=== PATIENT | male | born 1950 | race Caucasian/White ===

== ENCOUNTER 2023-03-25 08:13 | Outpatient (CLI) | payer MEDICARE, SELFPAY ==
--- NOTE | 2023-04-05 18:21 | WPDSLEEPSTUD ---
Sleep Study Date of Study: 03/25/23 Ordering Provider: Moe Delacruz MD Interpreting Physician: Senia Calderon MD Sleep Study Type: Split Polysomnogram Height: 1.93 m Weight: 136.078 kg Body Mass Index: 36.5 Neck Circumference (inches): 19.5 Sherman: 8 Reason for Sleep Study history of obstructive sleep apnea, use CPAP for 23 years, CPAP 10 cm Sleep History Jeremy Matson is a 72-year-old man with obstructive sleep. He never awakens from sleep feeling short of breath. He rarely wakes at night with heartburn, belching or coughing.??He constantly snores, constantly snores loudly enough that others complain. He occasionally has trouble sleeping when he has a cold. He never wakes up gasping for breath during the night. He frequently has breathing problems at night. He occasionally sweats excessively at night. He never notices his heart pounding or beating irregularly during the night. He occasional falls asleep during the day. He occasionally falls asleep involuntarily, never falls asleep while driving. He never experiences loss of muscle tone with strong emotion. He rarely has daytime difficulty at work due to excessive sleepiness. He never feels paralyzed on waking or falling asleep. He rarely experiences vivid dreams upon waking or falling asleep. He never feels afraid of going to sleep. He rarely has nightmares. He rarely recalls his dreams. He rarely has thoughts racing through his mind. He never feels sad or depressed. He rarely feels anxiety. He rarely notices parts of his body jerk. He occasionally kicks during the night. He rarely feels crawling or aching feelings in his legs. He rarely feels leg pain at night. He never has morning jaw pain, rarely grinds his teeth at night. He rarely feels bothered by pain during the day, rarely awakened by pain during the night. He occasionally wakes up feeling stiff in the morning, and he rarely wakes feeling sore or achy. He occasionally awakens with pain in his neck, spine, or joints. Normal bedtime is 9:30 p.m., falling asleep within 10-20 minutes typically waking 2-3 times during the night to empty his bladder, returns to sleep within 5 minutes. He typically gets 7 and a half hours of sleep per night. His wake up time is 8:00 a.m.. He keeps a similar schedule on weekends.. He Generally does not take naps but a short nap lasting 10-15 minutes might be refreshing. He reports no change in weight during the last year. Habits:??Tobacco: cigarettes, half to 3/4 pack per day Caffeine: 2 sodas per day. Alcohol: none Recreational substances: none [facility] Past Medical History Medical History (Updated 04/05/23 @ 19:00 by Senia Calderon MD) BMI 34.0-34.9,adult BMI 38.0-38.9,adult BMI over 35 Degenerative lumbar disc Foot drop, right History of atrial fibrillation Mixed hyperlipidemia Nasal sinus inflammation due to allergy KANNAN on CPAP Type 2 diabetes mellitus without complication Surgical History Surgical History (Updated 04/05/23 @ 18:31 by Senia Calderon MD) History of partial nephrectomy Status post cholecystectomy Total knee replacement status Social History Social History Years smoked: 52 Smoking status: Current every day smoker Tobacco type: cigarettes Second hand tobacco smoke exposure: Yes Alcohol intake: current Substance use: never Medications Home Medications Medication Instructions Recorded Confirmed Type aspirin 81 mg tablet,delayed 81 mg PO DAILY 02/08/22 02/21/23 History release cholecalciferol (vitamin D3) 125 125 mcg PO DAILY 02/08/22 02/21/23 History mcg (5,000 unit) capsule multivitamin 1 tablet PO DAILY 02/08/22 02/21/23 History potassium citrate 99 mg capsule mg PO 09/06/22 02/21/23 History carvedilol 12.5 mg tablet 12.5 mg PO BID #180 tabs 10/18/22 02/21/23 Rx rosuvastatin 40 mg tablet 40 mg PO DAILY #90 tabs 10/18/22 02/21/23 Rx furosemide 80 mg tablet 80
[2023-04-05 18:33] VITALS: BMI 36.5
== END 2023-03-26 07:43 | disposition home or self-care (01) ==
PROVIDERS: PCP Family Medicine; Visit Provider Family Medicine
DX: G47.33 Obstructive sleep apnea (adult) (pediatric) (principal); G47.61 Periodic limb movement disorder
CPT/HCPCS: 95811

== ENCOUNTER 2024-01-17 13:04 | Outpatient (CLI) | payer MEDICARE, SELFPAY ==
--- NOTE | ~2024-01-17 | US_ITS ---
EXAMINATION: US carotid duplex BI DATE: 01/17/2024 13:51 INDICATION: Cerebrovascular accident. TECHNIQUE: Grayscale, color Doppler, and pulsed Doppler images of the cervical carotid arteries were obtained. The degree of vessel stenosis is placed in one of the following categories: normal, <50%, 5 0-69%, >=70% but less than near-occlusion, near-occlusion, or total occlusion. Note that percent sten osis relative to normal distal artery lumen diameter is indirectly measured from velocity measurement s as described by Gareth, et al. Radiology 2003; 229:340-346. COMPARISON: None. FINDINGS: RIGHT: The right common carotid artery (CCA) peak systolic velocity (PSV) is 53 cm/s. The right internal car otid artery (ICA) PSV is 83 cm/s. The right ICA end-diastolic velocity (EDV) is 25 cm/s. The right IC A/CCA PSV ratio is 1.6. Grayscale and color Doppler images yield an estimate of <50% diameter reducti on from plaque in the ICA. There is antegrade flow in the right vertebral artery. LEFT: The left CCA PSV is 47 cm/s. The left ICA PSV is 84 cm/s. The left ICA EDV is 33 cm/s. The left ICA/C CA PSV ratio is 1.8. Grayscale and color Doppler images yield an estimate of <50% diameter reduction from plaque in the ICA. There is antegrade flow in the left vertebral artery. IMPRESSION: 1. <50% stenosis in the right internal carotid artery. 2. <50% stenosis in the left internal carotid artery. Reviewed, dictated and finalized at location A.
== END 2024-01-17 13:05 | disposition home or self-care (01) ==
PROVIDERS: PCP Family Medicine
DX: R27.0 Ataxia, unspecified (principal); I63.9 Cerebral infarction, unspecified; I65.23 Occlusion and stenosis of bilateral carotid arteries
CPT/HCPCS: 93880

== ENCOUNTER 2024-07-14 15:12 | Emergency (ER) | payer MEDICARE, SELFPAY ==
--- OUTSIDE RECORDS SUMMARY | 2024-07-14 15:14 | XMS_ITS | Continuity of Care Document ---
Author Organization [facility] [place] Address [address] [place] [address] [address] [place] [address] Phone Care Team Providers Care Horse Show Judge Name Role Phone Oliver OD, Austin Unavailable Unavailable Procedures Procedure Date Eye Exam, New Patient Refraction Advance Directives Directive Yes / No Effective Date File Name No Information Encounters Encounter Description Practice Location Reason(s) For Visit Diagnoses Date Provider Providers Copied on Encounter [facility], [address] [place] [address] [address] [place], [place], [id number], [place] tel:[phone] [facility] [place] No Information [phone] Oliver OD [place]. [address] [facility] [address] [place] , [address], [place], [address], [place]. tel:[phone] Family History Family Member Type Diagnosis Age At Onset No Information Payers Payer name Insurance type Covered republican ID Authoriza tion(s) No Information Social History Type Description Quantity Date Captured Comments Sex Male Smoking Status No Information Chief Complaint And Reason For Visit No Information Reason For Referral Reason For Referral No Information History Of Present Illness Encounter Date Complaint History Of Prese nt Illness No Information Functional Status Date Functional Assessmen t No Information Instructions Date Instruction Additional Infor mation No Information Assessments Type Assessment Date No Information Patient Care Teams Name Effective Dates (start - stop) Status Members No Information
--- OUTSIDE RECORDS SUMMARY | 2024-07-14 15:14 | XMS_ITS | CONTINUITY OF CARE DOCUMENT ---
Author Name brittney, chelsiser Address Unknown Organization [facility] Address [address] [place] [address] [place] [address] Phone [phone] Care Team Providers Care Head Of Measurement & Insights Name Role Phone Jos ROBERTS, Jarred Unavailable [phone] LISA MACHADO MD Unavailable Unavailable LISA MACHADO MD Unavailable Unavailable PROBLEMS Condition Status Date Provider Notes TOBACCO ABUSE active Shanique Stahlschmidt SLEEP APNEA active Shanique Stahlschmidt SNORING active Shanique Stahlschmidt DIABETES MELLITUS active Shanique Stahlschmid t HYPERCHOLESTEROLEMIA active Shanique Stahlsch midt HTN ESSENTIAL active Shanique Stahlschmidt CARDIOMYOPATHY active Shanique Stahlschmidt ALLERGIES No Known Drug Allergies HISTORY OF MEDICATION USE Medication Status Instructions Dates Provider Indications Com ments ACTOS 30 MG ORAL TABLET active ONE TAB. DAILY Shanique Stahlschmidt NIACIN 500 MG ORAL TABLET active two tab twice daily Shanique Stahlschmidt FLAXSEED OIL CAPSULE active twice daily Shanique Stahlschmidt GLUCOPHAGE 500 MG ORAL TABLET active 4 tabs daily Shanique Stahlschmidt ENALAPRIL MALEATE 10 MG ORAL TABLET active ONE TAB. TWICE DAILY Shanique Stahlschmidt COREG 12.5 MG ORAL TABLET active ONE TAB. TWICE DAILY Shanique Stahlschmidt FOLGARD TABS active Shanique Stahlschmidt ASPIRIN 81 MG ORAL TABLET active ONE TAB. DAILY Shanique Stahlschmidt INSURANCE PROVIDERS Payer name Policy type / Coverage type [place] red green party ID [facility] [id number]
--- OUTSIDE RECORDS SUMMARY | 2024-07-14 15:14 | XMS_ITS | Clinical Summary ---
Author Organization [facility] Address [address] [place] [address] Care Team Providers Care Teenage Program Director Name Role Phone Unavailable Primary Care Provider Unavailabl e Social History Tobacco Use Types Packs/Day Years Used Date Smoking Tobacco: Never Assessed Sex and Gender Information Value Date Recorded Sex Assigned at Not on file Legal Sex Male 9:23 PM [employer] Gender Identity Not on file Sexual Orientation Not on file Plan of Treatment Health Maintenance Due Date Last Done Comments Colorectal Cancer Screening Colonoscopy (10 Years) 1950 Hepatitis C 1970 DTaP, Tdap and Td Vaccines ( 1 - Tdap) 07/03/1971 Zoster Vaccines (1 of 2) 2002 Pneumococcal Vaccine: 65+ Ye ars (1 of 1 - PCV) 2017 COVID-19 Vaccine ( - 2023-2 5 season) 2023 Influenza Adult (#1) 2024 RSV Immunization or 60+ Years (1 - 1-dose 75+ series) 07/03/2027 Meningococcal B Vaccine Aged Out No l onger eligible based on patient's age to complete this topic Meningococcal Vaccine Aged Out No deven natasha eligible based on patient's age to complete this topic RSV Immunizations Under 20 Months Aged Out No longer eligible based on patient's age to complete this topic
--- OUTSIDE RECORDS SUMMARY | 2024-07-14 15:14 | XMS_ITS | Clinical Summary ---
Author Organization [facility] [employer] Address [address] [place] [address] Care Team Providers Care Sports Fitness And Wellness Director Name Role Phone Moe Delacruz MD Primary Care Provider [phone] Johnathon Perez DO Unavailable [phone] Source Comments [facility],non-owned Affiliates and Associated Physician Practices is amultiple site organization consisting of ambulatory clinics and hospital sitesin [place], [place], [place] and [place]. This disclosure is being madepursuant to the Care Everywhere program and may not contain all information available regarding this patient. Last updated 18.[facility] [employer] Allergies Active Allergy Reactions Criticality Noted Date Comments Contrast-Iodinated Agents Fo r Ct/Other Other 06/22/2019 Kidney problems Metformin Diarrhea 09/02/2022 Nsaids Other 06/22/2019 Kidney problems Medications * Be aware that medications may not be up to date on this document. Alwaysverify current medications with the patient. Medication Sig Dispensed Refills Start Date End Date Status furosemide (Lasix) 80 MG tablet Take 1 (one) tablet by mouth once daily Active carvedilol (Coreg) 12.5 MG tablet Take 1 (one) tablet by mouth 2 times daily with morning and evening meal Active pioglitazone (Actos) 45 MG tablet Take 1 (one) tablet by mouth once daily Active Potassium 95 MG TABS Take 1 tablet by mouth 2 times daily Active cetirizine (ZyrTEC) 10 MG tablet Take 1 (one) tablet by mouth once daily Active VITAMIN D PO Take 5,000 Units by mouth Active aspirin EC (Ecotrin) 81 MG tablet Take 1 (one) tablet by mouth once daily Active Multiple Vitamin (MULTIVITAMIN ADULT PO) Take by mouth once daily Active Mounjaro 5 MG/0.5ML injection Inject 5 (five) mg subcutaneously every 7 days 4 Active gentamicin (Garamycin) 0.1 % topical ointmentIndications :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) APPLY TO THE AFFECTED AREA 3 TIMES A DAY 30 g 1 4 04/20/20 25 Active Additional Information Patient taking differently: PRN, Reported on 07/10/2024 rosuvastatin (Crestor) 40 MG tablet Take 1 (one) tablet by mouth at bedtime 4 Active collagenase (Santyl) 250 UNIT/GM ointmentIndications :Ulcer of right foot with fat layer exposed (HCC),Diabetic polyneuropathy associated with type 2 diabetes mellitus (HCC) Apply to affected area once daily 90 g 3 4 01/13/20 24 Discontinu ed(Tx Complete) gabapentin (Neurontin) 300 MG capsule Take 1 (one) capsule by mouth 3 times daily 90 capsule 1 4 07/11/19 25 Discontinu ed(List Clean-Up) amoxicillin-clavula tara (Augmentin) 500-125 MG tablet TAKE 1 TABLET BY MOUTH THREE TIMES DAILY UNTIL GONE 5 07/11/19 25 Discontinu ed(List Clean-Up) Active Problems Problem Noted Date Diagnosed Date Cervical myelopathy 01/31/2024 Other intervertebral disc degeneration, lumbar r egion 09/22/2022 Foot drop, right 09/22/2022 Encounters Date Type Department Care Team Description 07/13/2024 Telephone [facility] Orthopedics [address] [place] [address] Brianna Walker, CIGARETTE SELLER-DISTRICT ASSOCIATE JUDGE Imaging (see note) 07/12/2024 3:30 PM CDT Office Visit [facility] - Podiatry [address] [facility] [place] [address] Tristian Yao, DPKaylee 07/10/2024 3:00 PM CDT Office Visit [facility] Heart & Vascular Care [address] [facility], [address] [place] [address] Johnathon Perez T, DO Paroxysmal A-fib (Primary Dx); Primary hypertension; Mixed hyperlipidemia; Localized swelling of both lower legs 06/21/2024 2:00 PM ASSEMBLER INSTALLER STRUCTURES Office Visit [facility] - Podiatry 2 [facility], [facility] [address] [place] [phone] Tristian Yao, DPM Ulcer of right foot with fat layer exposed (Primary Dx); Diabetic polyneuropathy associated with type 2 diabetes mellitus; Drop foot gait; Onychomycosis 05/24/2024 3:00 PM ASSEMBLER INSTALLER STRUCTURES Office Visit [facility] Podiatry [address] [phone] Tristian Yao, DPKaylee Ulcer of right foot with fat layer exposed (Primary Dx); Diabetic polyneuropathy associated with type 2 diabetes mellitus; Drop foot gait; Onychomycosis; History of amputation 05/02/2024 2:00 PM ASSEMBLER INSTALLER STRUCTURES Office Visit [facility] Podiatry [address] [phone] Tristian Yao, DPKaylee Ulcer of right foot with fat layer exposed (Primary Dx); Diabetic polyneuropathy associated with type 2 diabetes mellitus; Drop foot gait; Onychomycosis 04/23/2024 10:00 AM ASSEMBLER INSTALLER STRUCTURES Office Visit [facility] Orthopedics [address] [place] [phone] Vasquez Cope MD Davis, Alicia J, APRN-DISTRICT ASSOCIATE JUDGE Cervical myelopathy (Primary Dx); S/P cervical spinal fusion; Entrapment of both ulnar nerves 04/23/2024 8:45 AM ASSEMBLER INSTALLER STRUCTURES - 04/23/2024 11:59 PM ASSEMBLER INSTALLER STRUCTURES Hospital Encounter [facility] [address] [place], [place] [address] Brianna Walker APRN-DISTRICT ASSOCIATE JUDGE Discharge Disposition: Home or Self Care from Last 3 Months Immunizations Name Administration Dates Next Due Covid Pfizer primary monoval ent 12+ yr 0.3mL Purple cap 05/02/2020,04/10/2020 PNEUMOCOCCAL PCV20 CONJ VAC IM 02/02/2024 TDAP (7yrs+) 09/02/2022 Family History Medical History Relation Name Comments Diabetes - Type 2 Father CVA Mother Relation Name Status Comments Father Mother Social History Tobacco Use Types Packs/Day Years Used Date Smoking Tobacco: Former Cigarettes Q uit: 01/24/2024 Smokeless Tobacco: Never Tobacco Cessation:Counseling Given: Not Answered Comments:Stopped 1 week ago/ pre-surgery Alcohol Use Standard Drinks/Week Comments Not Currently 0 (1 standard drink = 0.6 oz pur e alcohol) rarely AUDIT-C Answer Date Recorded Q1: How often do you have a drink containing alcohol? Never 01/31/2024 Q2: How many drinks containi ng alcohol do you have on a typical day when you are drinking? Patient does not drink Q3: How often do you have si x or more drinks on one occasion? Never 01/31/2024 Overall Financial Resource Strain (CARDIA) Answe r Date Recorded How hard is it for you to pa y for the very basics like food, housing, medical care, and heating? Patient declined 01/31/2024 PHQ-2 Answer Date Recorded Patient Health Questionnaire-2 Score 0 07/12/2024 [facility] [place] [facility] - Occupational Stress Questionnaire Answer Date Recorded Do you feel stress - tense, restless, nervous, or anxious, or unable to sleep at night because your mind is troubled all the time - these days? Only a little 01/31/2024 Hunger Vital Sign Answer Date Recorded Within the past 12 months, y ou worried that your food would run out before you got the money to buy more. Patient declined Within the past 12 months, t he food you bought just didn't last and you didn't have money to get more. Patient declined 11/2023 PRAPARE - Transportation Answer Date Re corded In the past 12 months, has l ack of transportation kept you from medical appointments or from getting medications? No 11/2023 In the past 12 months, has l ack of transportation kept you from meetings, work, or from getting things needed for daily living? No 01/31/2024 Housing Stability Vital Sign Answer José Miguel e Recorded In the last 12 months, was t here a time when you were not able to pay the mortgage or rent on time? No 01/31/2024 In the last 12 months, how many places have you lived? 1 01/31/2024 In the last 12 months, was t here a time when you did not have a steady place to sleep or slept in a care home (including now)? No 01/31/2024 Sex and Gender Information Value Date Recorded Sex Assigned at Not on file Gender Identity Not on file Sexual Orientation Not on file Last Filed Vital Signs Vital Sign Reading Time Taken Comments Blood Pressure 123/65 07/12/2024 3:36 PM CDT Pulse 55 07/12/2024 3:36 PM CDT Temperature 36.4 C (97.5 F) 07/12/2024 3:36 PM CDT Respiratory Rate 18 07/12/2024 3:36 PM CDT Oxygen Saturation 96% 07/12/2024 3:36 PM CDT Inhaled Oxygen Concentration 21% 01/31/2024 7 :00 PM CDT Weight 117.5 kg (259 lb) 07/12/2024 3:36 PM CDT Height 193 cm (6' 4 ) 07/12/2024 3:36 PM CDT Body Mass Index 31.53 07/12/2024 3:36 PM CDT Plan of Treatment Upcoming Encounters Date Type Department Care Team (Late st Contact Info) Description 07/20/2024 8:30 AM CDT Office Visit [facility] Orthopedics [address] [place] [address] Brianna Walker, CIGARETTE SELLER-DISTRICT ASSOCIATE JUDGE [address] [place] [address] 08/08/2024 3:30 PM CDT Office Visit [facility] - Podiatry 2 [address] [facility], [facility] [address] [place] [address] Tristian Yao, DPKaylee 2 [facility] [address] [place] [address] 07/09/2025 3:00 PM CDT Office Visit [facility] Heart & Vascular Care 2 [facility], [address] [place] [address] Johnathon Perez, [address] [facility] [address] [place] [phone] Health Maintenance Due Date Last Done Comments COLOGUARD (AGES 45-75) - COLON CA SCREENING 1952 COLON MONITORING 1952 COLONOSCOPY - COLON CA SCREENING 1952 CT COLONOGRAPHY - COLON CA SCREENING 1952 Colorectal Cancer Screening 1952 FIT - COLON CA SCREENING 1952 FLEX SIG - COLON CA SCREENING 1952 HEPATITIS C SCREENING 06/28/1970 ZOSTER VACCINE (1 of 2) 2002 Respiratory Syncytial Virus (RSV) Vaccine Pt: or over 60 yrs (1 - Risk 60-74 years 1-dose series) 2012 AAA SCREENING 2017 COVID-19 VACCINE (4 - 2023- season) 2023 04/25/2021, 05/02/2020, 04/10/2020 INFLUENZA VACCINE (#1) 2023 05/25/2014, 2012 SCREENING FOR DIABETES 01/31/2027 , 02/01/2024, 01/13/2024, Additional history exists DTAP/TDAP/TD VACCINES (2 - Td or Tdap) 09/02/2032 09/02/2022 PNEUMOCOCCAL VACCINE 50+ Completed 02/02/2024 DEPRESSION SCREENING Completed 05/02/2024, 05/12/2023, 05/31/2022, Additional history exists HEPATITIS B VACCINE Aged Out No longe r eligible based on patient's age to complete this topic HIB VACCINE Aged Out No longer eligi ble based on patient's age to complete this topic HPV VACCINE Aged Out No longer eligi ble based on patient's age to complete this topic MENINGOCOCCAL (Group B) VACCINE SHARED DECISION-MAKING Aged Out No longer eligible based on patient's age to complete this topic MENINGOCOCCAL GROUPS A/C/Y/W VACCINE Aged Out No longer eligible based on patient's age to complete this topic Medical Devices Implanted Type Area Special Procedures Nurse Device Identifier Shelf Expiration Date Model / Serial / Lot Graft Bone I Fctr 2.5cc Algrf Ptty Syr - [id number] Implanted:Qty: 1 on 02/01/2024 by Vasquez Cope MD at [facility] N/A: Spine Cervical [employer] 04/24/2026 [id number] / [id number] / [id number] 7mm Interbody Plate Implanted:Qty: 3 on 02/01/2024 by Vasquez Cope MD at [facility] N/A: Spine Cervical 170-07 / / Description:7mm Interbody Pl ate 7mm X 15 X 17.5, 6 Degree Cage Implanted:Qty: 3 on 02/01/2024 by Vasquez Cope MD at [facility] N/A: Spine Cervical [id number] / / Description:cage 4.0 X 18mm Self Drilling Variable Screw Implanted:Qty: 6 on 02/01/2024 by Vasquez Cope MD at [facility] N/A: Spine Cervical [id number] / / Procedures Procedure Name Priority Date/Time Associated Diagnosis Comments EKG 12-LEAD Routine 07/10/2024 Paroxysmal A-fib XR CERVICAL SPINE 2 OR 3VW Routine 04/23/2024 8:58 AM ASSEMBLER INSTALLER STRUCTURES S/P cervical spinal fusion GLUCOSE - POINT OF CARE Routine 02/01/2024 9:17 AM CDT from Last 3 Months or Most Recently Relevant to Health Maintenance Results * EKG 12-LEAD (07/10/2024) Johnathon Perez DO ECG ORDERABLES * XR CERVICAL SPINE 2 OR 3 VW 24604 (04/23/2024 8:58 AM ASSEMBLER INSTALLER STRUCTURES) Anatomical Region Laterality Modality Spine Computed Radiogr aphy 04/23/2024 9:30 AM ASSEMBLER INSTALLER STRUCTURES Narrative 04/24/2024 5:44 AM ASSEMBLER INSTALLER STRUCTURES PROCEDURE: XR CERVICAL SPINE 2 OR 3VW 04/23/2024 9:30 AM HISTORY: Z98.1: Arthrodesis status. FINDINGS AND IMPRESSION: COMPARISON: 03/11/2024. No acute fracture, dislocation, destructive process Anterior interbody fusion C3 C4 C4 C5 C5 C6. Surgical hardware in satisfactory Anatomic alignment No evidence of hardware failure or loosening. Multilevel facet degeneration No spondylolisthesis Stable arthrodesis. > Interpreting Provider: Aman Booth MD on 04/24/2024 5:44 AM Procedure Note Aman Booth MD - 04/24/2024 PROCEDURE: XR CERVICAL SPINE 2 OR 3VW 04/23/2024 9:30 AM HISTORY: Z98.1: Arthrodesis status. FINDINGS AND IMPRESSION: COMPARISON: 03/11/2024. No acute fracture, dislocation, destructive process Anterior interbody fusion C3 C4 C4 C5 C5 C6. Surgical hardware in satisfactory Anatomic alignment No evidence of hardware failure or loosening. Multilevel facet degeneration No spondylolisthesis Stable arthrodesis. > Interpreting Provider: Aman Booth MD on 04/24/2024 5:44 AM Brianna Walker CIGARETTE SELLER-DISTRICT ASSOCIATE JUDGE DIAGNOSTIC IMAGI NG ORDERABLES * GLUCOSE - POINT OF CARE (02/01/2024 9:17 AM CDT) Glucose WB/POC 106 70 - 125 mg/dL 02/01/2024 9:18 AM CDT [facility] Specimen Type Cap Fingerstick 2023 9:18 AM CDT [facility] Blood BLOOD SPECIMEN / Unknown 02/01/2024 9:17 AM CDT 02/01/2024 9:18 AM CDT Vasquez Cope MD LAB - POINT O F CARE ORDERABLES Performing Organization Address City/State/[facility] Co de Phone Number [facility] [address] from Last 3 Months or Most Recently Relevant to Health Maintenance Additional Health Concerns Infection Onset Date Last Indicated MRSA Hx Comment:202101/18/2024 01/18/2024 Advance Directives * Full Code (Latest Code Status on File) Date Activated Date Inactivated Comments 02/01/2024 7:50 AM 02/02/2024 3:58 PM Care Teams Sports Fitness And Wellness Director Relationship Specialty Start Date End Date Moe Delacruz MD [address] [place] [address] PCP - General Family Medicine 01/17/24 Johnathon Perez DO [address] [facility] [address] [place] [address] Exploration Geologist Cardiac Electrophysiology 01/17/24
--- OUTSIDE RECORDS SUMMARY | 2024-07-14 15:15 | XMS_ITS | Encounter Summary ---
Author Organization [facility] Address [address] [place] [address] Care Team Providers Care Dope House Operator Helper Name Role Phone Unavailable Primary Care Provider Unavailabl e Encounter Details Date Type Department Care Team (Late st Contact Info) Description 07/09/2017 Abstract [facility] CONVERSION [address] [place] [address] , Generic Conversion, Social History Tobacco Use Types Packs/Day Years Used Date Smoking Tobacco: Never Assessed Sex and Gender Information Value Date Recorded Sex Assigned at Not on file Legal Sex Male 9:23 PM ELECTRICIAN TELEPHONE Gender Identity Not on file Sexual Orientation Not on file documented as of this encounter Plan of Treatment Not on file documented as of this encounter Visit Diagnoses Not on filedocumented in this encounter
--- OUTSIDE RECORDS SUMMARY | 2024-07-14 15:15 | XMS_ITS | Encounter Summary ---
Author Organization [facility] Address [address] [facility] [place] [address] Care Team Providers Care Ethylene Oxide Panelboard Operator Name Role Phone Moe Delacruz MD Primary Care Provider [phone] Johnathon Perez DO Unavailable [phone] Reason for Visit * Reason Onset Date Comments Imaging 07/13/2024 see note Encounter Details Date Type Department Care Team (Late st Contact Info) Description 07/13/2024 Telephone [facility] Orthopedics [address] [place] [phone] Brianna Walker, IMPLEMENTATION TECHNICIAN-WELDING PANTOGRAPH MACHINE OPERATOR [address] [place], [place] [phone] Imaging (see note) Social History Tobacco Use Types Packs/Day Years Used Date Smoking Tobacco: Former Cigarettes Q uit: 01/24/2024 Smokeless Tobacco: Never Comments:Stopped 1 week ago/ pre-surgery Alcohol Use [...] Recorded Patient Health Questionnaire-2 Score 0 07/12/2024 [facility] - Occupational Stress [...] place to sleep or slept in a prison (including now)? No 01/31/2024 Sex and Gender Information Value Date Recorded Sex Assigned at Not on file Gender Identity Not on file Sexual Orientation Not on file documented as of this encounter Functional Status Functional Status Response Date of Assess ment Is person deaf or have serious hearing difficult y? No 01/31/2024 Is person blind or have serious difficulty seein g? No 01/31/2024 Does person have serious dif ficulty walking/climbing stairs? No 01/31/2024 Does person have difficulty dressing/bathing? No 01/31/2024 Does person have difficulty doing errands alone? No 01/31/2024 Cognitive Status Response Date of Assessm ent Does person have difficulty concentrating/remembering/making decisions? No 01/31/2024 documented as of this encounter Miscellaneous Notes * Telephone Encounter - Hanny Zamora RN - 07/13/2024 9:49 AM CDT Informed patient to obtain xray prior to f/u appt on 07-20-24. documented in this encounter Plan of Treatment Upcoming Encounters Date Type Department Care Team (Late st Contact Info) Description 07/20/2024 8:30 AM CDT Office Visit [facility] Orthopedics [address] [place] [address] Brianna Walker, IMPLEMENTATION TECHNICIAN-WELDING PANTOGRAPH MACHINE OPERATOR [address] [place] [address] 08/08/2024 3:30 PM CDT Office Visit [facility] Medical Group - Podiatry 2 [facility] [place] [address] Tristian Yao, DPKaylee [address] [facility] [address] [place] [address] 07/09/2025 3:00 PM CDT Office Visit [facility] Heart & Vascular Care 2 [facility], [address] [place], [place] [phone] Johnathon Perez, DO [address] [facility] [address] [place] [address] Scheduled Orders Name Type Priority Associated Diagnoses Orde r Schedule XR Cervical Spine 2 or 3Vw Imaging Routine S/P cervical spinal fusion 1 Occurrences starting 07/13/2024 until 07/13/2025 documented as of this encounter Visit Diagnoses Diagnosis S/P cervical spinal fusion- Primary Arthrodesis status documented in this encounter Additional Health Concerns Infection Onset Date Last Indicated Resolved Time MRSA Hx Comment:202101/18/2024 01/18/2024 documented as of this encounter Care Teams Ethylene Oxide Panelboard Operator Relationship Specialty Start Date End Date Schueler, Moe F, MD [address] [place] [address] PCP - General Family Medicine 01/17/24 Johnathon Perez DO 2 [facility] [address] [place] [address] Line Server Cardiac Electrophysiology 01/17/24 documented as of this encounter
--- OUTSIDE RECORDS SUMMARY | 2024-07-14 15:16 | XMS_ITS | CONTINUITY OF CARE DOCUMENT ---
Author Name brittney, chelsiser Address Unknown Organization [facility] Address [address] [facility] [address] [place] [address] Phone [phone] Care Team Providers Care Lump Roller Name Role Phone Jos ROBERTS, Jarred Unavailable [phone] LISA MACHADO MD Unavailable Unavailable LISA MACHADO MD Unavailable Unavailable PROBLEMS Condition Status Date Provider Notes TOBACCO ABUSE active Shanique Stahlschmidt SLEEP APNEA active Shanique Stahlschmidt SNORING active Shanique Stahlschmidt DIABETES MELLITUS active Hsanique Stahlschmid t HYPERCHOLESTEROLEMIA active Shanique Stahlsch midt [...] Payer name Policy type / Coverage type [place] red alliance party ID [facility] Blue [facility] [id number]
--- OUTSIDE RECORDS SUMMARY | 2024-07-14 15:16 | XMS_ITS | Continuity of Care Document ---
Author Organization [facility] Address [address] [place] [address] [address] [place] [address] Phone Care Team Providers Care Motion Study Engineer Name Role Phone Oliver OD, [place] Unavailable Unavailable Procedures Procedure Date Eye Exam, New Patient Refraction Advance Directives Directive Yes / No Effective Date File Name No Information Encounters Encounter Description Practice Location Reason(s) For Visit Diagnoses Date Provider Providers Copied on Encounter formerly [facility], [address] [place] [address] [address], [place], [place], [id number], [place] tel:[phone] [facility] No Information [phone] Oliver OD [place]. [address] [facility] [address] , [address], [place], [address], [place]. tel:[phone] Family History Family Member Type Diagnosis Age At Onset No Information Payers Payer name Insurance type Covered alliance party ID Authoriza tion(s) No Information Social History [...]
[2024-07-14 15:21] VITALS: BP 129/61; PULSE 60; RESP 18; TEMP 36.4; O2SAT 99
--- NOTE | 2024-07-14 15:25 | ED_ITS ---
HPI - Eye Problem General Chief complaint: Eye Problems Stated complaint: RT Eye irritation Time Seen by Provider: 07/14/24 15:30 Source: patient Mode of arrival: ambulatory Limitations: no limitations History of Present Illness HPI Narrative: Jeremy is a 74-year-old male patient presenting to the clinic today with complaints of right eye irritation/discomfort. He reports he woke up this morning with his eye red, discomfort, and some goopy discharge. Ever since is eye has been watering any feels like there may be something in his eye. States no itching but does have eye discomfort. Denies any known object that had gotten into his eye. No known injury. Wears glasses but does not wear any contacts. Related Data Home Medications ?Medication ?Instructions ?Recorded ?Confirmed ?Last Taken ?Type aspirin 81 mg tablet,delayed 81 mg PO DAILY 02/08/22 07/09/24 Unknown History release cholecalciferol (vitamin D3) 125 125 mcg PO DAILY 02/08/22 07/09/24 Unknown History mcg (5,000 unit) capsule multivitamin 1 tablet PO DAILY 02/08/22 07/09/24 Unknown History cetirizine 10 mg capsule (Zyrtec) 10 mg PO DAILY PRN 02/21/23 07/09/24 Unknown History Allergies Allergy/AdvReac Type Severity Reaction Status Date / Time metformin AdvReac Intermediate Diarrhea Verified 07/14/24 15:20 Review of Systems Review of Systems: Pertinent positives per HPI. Patient denies any fever, chills, rash, headache, visual changes, dizziness, cough, runny nose, sore throat, shortness of breath, chest pain, palpitations, nausea, vomiting, diarrhea, constipation, abdominal pain, or any urinary issues. [facility] Past Medical History Medical History Preoperative clearance Stenosis, cervical spine Infected abrasion of great toe of right foot BMI 37.0-37.9, adult PLMD (periodic limb movement disorder) Nasal sinus inflammation due to allergy KANNAN on CPAP Degenerative lumbar disc Foot drop, right BMI 34.0-34.9,adult Tinnitus BMI over 35 BMI 38.0-38.9,adult History of atrial fibrillation Mixed hyperlipidemia Type 2 diabetes mellitus without complication Surgical History Surgical History History of partial nephrectomy Status post cholecystectomy Total knee replacement status Social History Social History Smoking packs per day: 1 Smoking cigarettes per day: 20.0 Years smoked: 52 Smoking pack-years: 52.00 Smoking status: Current every day smoker Tobacco type: cigarettes Second hand tobacco smoke exposure: Yes Alcohol intake: current Substance use: never Do You Feel Safe in your Home?: Yes Lack of Transportation: No Lack of Food: Sometimes True Current Housing: I Have Housing Concerned About Future Housing: No Difficulty Paying Gas/Electric Bills: No Difficulty Paying for Meds: No Currently Unemployed: No Education: Bachelor's Degree Difficulty w/ Childcare or Family Care: No Living arrangements: with family Occupation/Education: occupation Gender identity (if verbalized by the patient): Male Comments At the time of my signature, I reviewed and agree with the nursing past medical, surgical, social, and family history. There is no relevant family history pertinent to the patient complaint. Exam Narrative: General: Well-developed, well nourished, in no apparent distress Head: Normocephalic, atraumatic Eyes: Pupils equally round and reactive to light bilaterally, EOM intact, left sclera and conjunctive clear, no discharge, lids normal, right sclera injected and conjunctive injected with clear and white mucopurulent discharge, lids normal Ears: TMs intact and clear, ear canals clear, no drainage, grossly hearing normal. Nose: Nares patent, no discharge, no inflammation, no sinus tenderness. Mouth: Oropharynx without lesions or masses, good dentition, MMM. Neck: Supple, trachea midline, no enlargement of anterior or posterior cervical nodes, no thyroid masses or goiter palpable. Cardio: Regular rate and rhythm, s1 and s2 normal, no murmur appreciated. Resp: Clear to auscultation bilaterally anteriorly and posteriorly, no rhonchi, rales, wheezing or rubs Course Course Emergency Course: Portions of this record may have been created with voice recognition software. Level of Care: Express Care Visit Vital Signs Vital signs: Vital Signs Temperature 36.4 C L 07/14/24 15:21 Pulse Rate 60 07/14/24 15:21 Respiratory Rate 18 07/14/24 15:21 Blood Pressure 129/61 07/14/24 15:21 Pulse Oximetry 99 07/14/24 15:21 Oxygen Delivery Room Air 07/14/24 15:21 Temperature 36.4 C L 07/14/24 15:21 Pulse Rate 60 07/14/24 15:21 Respiratory Rate 18 07/14/24 15:21 Blood Pressure 129/61 07/14/24 15:21 Pulse Oximetry 99 07/14/24 15:21 Oxygen Delivery Room Air 07/14/24 15:21 Vital signs reviewed Procedures Other Procedure Procedure 1: Other Procedure: Two drops of tetracaine topical anesthetic was instilled with good anesthesia. Fluorescein stain of the right eye was performed without uptake of dye. No epithelial defect was noted. NO FB, ulcer or dendritic lesions. Upper lid was everted and no FB or lesions were noted. No Kennedi sign. Normal saline irrigation eye solution was performed and the patient tolerated the procedure well, no adverse reaction or complications. Visual acuity was noted MDM - Eye Problem MDM Narrative Medical decision making narrative: At the time of visit patient is resting comfortably on the exam table. Patient appears to be nontoxic. Procedures: Wood's lamp exam was performed there was no sign of foreign body or corneal abrasion. No Kennedi sign. Plan: I suspect patient has right eye irritation/conjunctivitis. Prescription for ofloxacin eyedrops was sent to the pharmacy. Supportive measures were discussed with the patient and they voiced understanding discharge instructions and agrees to treatment plan. Return precautions reviewed Differential Diagnosis Differential diagnosis: Likely corneal abrasion, conjunctivitis, acute iritis, hyphema, periorbital cellulitis, subconjunctival hemorrhage, glaucoma, corneal ulcer and ruptured globe Discharge Plan Discharge Clinical Impression: Irritation of right eye Conjunctivitis Qualifiers: Conjunctivitis type: acute Acute conjunctivitis type: unspecified Laterality: right Qualified Code(s): H10.31 - Unspecified acute conjunctivitis, right eye Patient Disposition: Home, Self-Care Condition: Stable Instructions: Antibiotic Form, Eye Pain (ED), Conjunctivitis (ED) Additional Instructions: Conjunctivitis is considered contagious for 24 hours while on the antibiotic. Practice good hand washing techniques Avoid touching eyes Instill eyedrops as prescribed May use warm moist washcloth to help remove eye discharge If eyes are matted shut-do not pry eyes open-use a warm moist cloth to loosen matting and wipe matter away from eye May take Tylenol/Motrin as needed for pain or fever May take Benadryl as needed for itching Follow-up with your PCP in 3-5 days if symptoms persist or sooner if they worsen Go to the emergency room if you develop any fever that is not controlled by Tylenol or Motrin, loss of vision, eye pain, increase eye swelling,visual changes, headache, confusion, lethargy, weakness, chest pain, or shortness of breath. Patient Language: Armenian Prescriptions: New ofloxacin 0.3 % drops See Rx Instructions .ROUTE .COMPLEX Qty: 10 0RF Rx Instructions: put 1-2 drps into affected eye(s) every 2-4 h x 2 days, then 1-2 drps 4 times/day days 3-7 No Action multivitamin Tablet 1 tablet PO DAILY aspirin 81 mg tablet,delayed release (DR/EC) 81 mg PO DAILY cholecalciferol (vitamin D3) 125 mcg (5,000 unit) capsule 125 mcg PO DAILY Zyrtec 10 mg capsule 10 mg PO DAILY PRN furosemide 80 mg tablet 80 mg PO QAM Qty: 90 1RF carvedilol 12.5 mg tablet 12.5 mg PO BID Qty: 180 1RF Mounjaro 7.5 mg/0.5 mL pen injector 7.5 mg subcut WEEKLY Qty: 6 0RF rosuvastatin 40 mg tablet 40 mg PO DAILY Qty: 90 0RF Follow-up/Referrals: Moe Delacruz MD [Primary Care Provider] - Time of Disposition: 15:46 Quality NIHSS Nursing Documentation ED NIHSS nursing documentation: reviewed/agree
== END 2024-07-14 15:49 | disposition home or self-care (01) ==
PROVIDERS: Emergency Provider Nurse Practitioner Family; PCP Family Medicine
DX: H10.31 Unspecified acute conjunctivitis, right eye (principal); E78.2 Mixed hyperlipidemia; E11.9 Type 2 diabetes mellitus without complications; F17.210 Nicotine dependence, cigarettes, uncomplicated
CPT/HCPCS: 99213; A9270; G0463

== ENCOUNTER 2024-07-17 11:13 | Outpatient (CLI) | payer MEDICARE, SELFPAY ==
--- NOTE | ~2024-07-17 | CT_ITS ---
EXAMINATION:CT lung screening DATE: 07/17/2024 11:28 INDICATION: Nicotine dependence, cigarettes, uncomplicated. Current smoker with 81 pack year history. TECHNIQUE: Computed tomography (CT) of the chest was performed without intravenous contrast. Automate d exposure control and iterative reconstruction technique were employed. The dose-length product (DLP ) was 215.56 mGy-cm. COMPARISON: None. FINDINGS: There is mild emphysema. There is mild atelectasis and left lower lobe. There is a 2 mm nod ule in left upper lobe. There is a 3 mm nodule in left upper lobe. No pleural effusion. The heart siz e is normal. There are coronary artery calcifications. No pericardial effusion. There are cysts in ri ght kidney measuring up to 14 mm. There is moderate thoracic spondylosis. There is mild chronic anter ior wedging of multiple vertebral bodies. IMPRESSION: 1. Lung-RADS category 2: Benign appearance or behavior. Continue annual screening with noncontrast lo w-dose chest CT in 12 months. Reviewed, dictated and finalized at location [] IMPRESSION: 1. Lung-RADS category 2: Benign appearance or behavior. Continue annual screeni ng with noncontrast low-dose chest CT in 12 months.
== END 2024-07-17 11:14 | disposition home or self-care (01) ==
LOC: GOSHIMG 11:14
PROVIDERS: PCP Family Medicine; Visit Provider Nurse Practitioner Family
DX: Z12.2 Encounter for screening for malignant neoplasm of respiratory organs (principal); Z87.891 Personal history of nicotine dependence
CPT/HCPCS: 71271

== ENCOUNTER 2024-09-26 07:01 | Outpatient (CLI) | payer MEDICARE, SELFPAY ==
[2024-09-07 08:24] VITALS: BMI 30.3
--- NOTE | 2024-09-07 08:24 | PC.NURSE ---
Pre Radiology instructions Report to the outpatient denise ott on date _09/26/24 ____ at time __0730am for procedure Time: _0930am___ YOU MAY BE MONITORED AT HOSPITAL FOR UP TO 4 HOURS AFTER YOUR PROCEDURE. A visitor will be allowed to accompany the patient into the hospital. You and your visitor will be asked to self-screen and do not enter if you have any COVID symptoms. A mask is OPTIONAL within the hospital. Patients are to have no food or drink 6 hours prior to procedure time Driving will be restricted after the procedure, you must have a person to drive you home. Labs will be drawn in preop area and once reviewed, you will be taken to radiology area for procedure. When the procedure is completed, you will be taken to outpatient where you will be monitored for several hours. You may have one visitor in this area. Other than holding anti-coagulants, patient may take other medication(s) as scheduled. Prior to your appointment date patients are instructed to hold anti-coagulants after discussing with ordering provider to stop. If unable to discontinue anti-coagulants please notify radiologist. ? No aspirin or warfarin (Coumadin) for 7 days prior to the procedure. ? No clopidogrel (Plavix), ticagrelor (Brilinta), prasugrel (Effient) or dabigatran (Pradaxa) for 5 days prior to the procedure. ? No rivaroxaban (Xarelto), apixaban (Eliquis), dipyridamole (Aggrenox or Persantine) or cilostazol (Pletal) for 2 days prior to the procedure. Medications to discontinue per physician: _Aspirin _for 7 days prior Date to take last dose: ____09/18/24 Please leave all valuables, including medications, at home the day of procedure. The hospital will not accept responsibility for valuables. Wear comfortable, loose fitting clothing.? Follow any additional instructions given to you from ordering provider. Telephone instructions given to ___Patient and asked if any additional questions and then verbalized understanding. Patient advised to call scheduling provider office or registration scheduling [phone] if any additional questions.
[2024-09-26] VITALS (8 sets, daily range): BP systolic 106–126; BP diastolic 55–77; PULSE 51–60; RESP 14–18; TEMP 36.2; O2SAT 96–99
--- NOTE | ~2024-09-26 | CT_ITS ---
EXAMINATION: XR myelogram spine cervical, CT cervical spine w con DATE: 09/26/2024 10:34 (accession [id number]), 09/26/2024 10:31 (accession [id number]) INDICATION: Cervical nerve pain TECHNIQUE: Informed consent was obtained from the patient. Risks and benefits including bleeding, i nfection, allergic reaction, spinal headache and nerve root injury were discussed with the patient. The patient agreed to proceed. Time out procedure was performed. [employer] Hrms Developer radiograph was obtained. An entry site was chosen at the L3-L4 level. A left paracentral approach was used. Standard sterile p rep was done with Betadine. Entry site was infiltrated with 5 cc 1% lidocaine. A 3.5 22G spinal ne edle was then inserted into the spinal canal. 10 mL Omnipaque 300 were then injected into the thecal sac with intrathecal administration confirmed with intermittent fluoroscopy. The head of the table w as lowered and the contrast bolus followed with intermittent fluoroscopy as it moved to the cervical spine. A total of 12 fluoroscopic images and one crosstable lateral radiograph were obtained. The alivia unt of fluoroscopy time used during this procedure was 1.6 minutes. Total DAP was 19.203 mGycm^2. The patient was then transferred to CT scan for spiral CT of the cervical spine. Sagittal coronal rec onstructions were performed. Automated exposure control and iterative reconstruction technique were e mployed. Following this patient was transferred to the recovery area for 4 hours of observation. The re are no immediate complications. The dose-length product was 608.44 mGy-cm. COMPARISON: None. FINDINGS: Incidentally noted during the contrast injection is 13 degrees lumbar dextrorotoscoliosis. Grade 1 an terolisthesis L4 on L5 on the lateral projection. There is severe spondylosis. Multiple disc bulges a re observed along the lumbar spine while monitoring the cephalad movement of contrast into the cervic al spine. Cholecystectomy clips in the right upper quadrant. 10 degrees cervical and upper thoracic dextrocurvature. Sagittal alignment is normal. Instrumented an terior spinal fusion with bone graft cages and 3 anterior plates and screws at C3-C4, C4-C5 and C5-C6 . There appears be solid osseous bridging along at least small portion of the disc spaces. Vertebral body heights are normal. No acute fracture. Severe disc height loss at C6-C7 and mild disc height los s at C2-C3 and C7-T1 and T1-T2. Moderate disc height loss at T2-T3 and T3-T4. Moderate osteoarthritis at the atlantoaxial articulation. Small amount of atherosclerotic calcification is at the bilateral carotid bulbs. Cervical soft tissues are unremarkable. Minimal paraseptal emphysema at the left apex. The following disc levels are specifically discussed: C2-C3: The disc does not extend beyond the endplate margin. There is mild bilateral uncovertebral lucretia nt osteoarthritis. There is mild right and severe left facet joint osteoarthritis. There is mild bila teral neural foraminal stenosis. There is no central canal stenosis. C3-C4: Anterior spinal fusion. There is mild left and moderate to severe right uncovertebral joint os teoarthritis. There is mild right and severe left facet joint osteoarthritis. There is mild to modera te right and minimal left neural foraminal stenosis. There is mild central canal stenosis resulting p rimarily from hypertrophic changes at the right uncovertebral joint which flattens the right ventral surface of the cord. C4-C5: Anterior spinal fusion. There is mild left and moderate right uncovertebral joint osteoarthrit is. There is moderate to severe right and severe left facet joint osteoarthritis. There is mild right and minimal left neural foraminal stenosis. There is no central canal stenosis. C5-C6: Anterior spinal fusion. There is ossification along the midline of the posterior wall of C6 co ntributing to mild central canal stenosis beginning at the level of the C5-C6 interspace extending ca udally to the level of the C6-C7 disc spaces resulting in indentation of the central ventral surface of the cord and diffuse mild central canal stenosis. There is moderate right and severe left uncovert ebral joint osteoarthritis. There is mild left and mild to moderate right facet joint osteoarthritis. There is moderate bilateral neural foraminal stenosis. C6-C7: Disc is mildly bulging. There is altered left and severe right uncovertebral joint osteoarthri tis. There is moderate left and mild to moderate right facet joint osteoarthritis. There is mild bila teral neural foraminal stenosis. There is minimal central canal stenosis. C7-T1: The disc does not extend beyond the endplate margin. There is minimal bilateral uncovertebral joint osteoarthritis. There is mild to moderate bilateral facet joint osteoarthritis. There is no gini ral foraminal stenosis. There is no central canal stenosis. T1-T2: The disc does not extend beyond the endplate margins. There is mild to moderate bilateral face t osteoarthritis. There is no neural foraminal or central canal stenosis. T2-T3: There is ossification along the posterior longitudinal ligament inferiorly at T2 and at the mi dsuperior aspect of T3 spanning a small central disc protrusion. This results in mild central canal s tenosis and mildly indents the ventral surface of the cord. There is mild to moderate right and sever e left facet osteoarthritis. No neural foraminal stenosis. IMPRESSION: 1. Mild thoracolumbar dextrocurvature with effacement of anterior spinal fusion at C3-C6. 2. severe spondylosis at C6-C7 with mild spondylosis the remainder of the cervical spine and mild to moderate spondylosis in the visualized upper thoracic spine. Reviewed, dictated and finalized at location A. IMPRESSION: 1. Mild thoracolumbar dextrocurvature with effacement of anterior spinal fusion at C3-C6. 2. severe spondylosis at C6-C7 with mild spondylosis the remainder of the cervi felipe spine and mild to moderate spondylosis in the visualized upper thoracic spi ne.
--- OUTSIDE RECORDS SUMMARY | 2024-09-26 07:05 | XMS_ITS | CONTINUITY OF CARE DOCUMENT ---
Author Name brittney, chelsiser Address Unknown Organization [facility] Address [address] [place] [address] Phone [phone] Care Team Providers Care Melter Assistant Name Role Phone Jos ROBERTS, Jarred Unavailable [phone] LISA MACHADO MD Unavailable Unavailable LISA MACHADO [...] Payer name Policy type / Coverage type [place] red democrat ID [facility] [id number]
--- OUTSIDE RECORDS SUMMARY | 2024-09-26 07:05 | XMS_ITS | Continuity of Care Document ---
Author Organization [facility] Address [address] [place] [address] [address] [place] [address] Phone Care Team Providers Care Coatings Inspector Name Role Phone Oliver OD, [place] Unavailable Unavailable Procedures Procedure Date Eye Exam, New Patient Refraction Advance Directives Directive Yes / No Effective Date File Name No Information Encounters Encounter Description Practice Location Reason(s) For Visit Diagnoses Date Provider Providers Copied on Encounter [facility], [address] [place] [address] [address], [place], [place], [id number], [place] tel:[phone] [facility] No Information [phone] Oliver OD [place]. [address] [facility] [address] , [address], [place], [address], [place]. tel:[phone] Family History Family Member Type Diagnosis Age At Onset No Information Payers Payer name Insurance type Covered green party ID Authoriza tion(s) No Information Social [...]
--- OUTSIDE RECORDS SUMMARY | 2024-09-26 07:05 | XMS_ITS | Clinical Summary ---
Author Organization [facility] [employer] Address [address] [place] [address] Care Team Providers Care Research Asst Name Role Phone Moe Delacruz MD Primary Care Provider [phone] Johnathon Perez DO Unavailable [phone] Source Comments [facility],non-owned Affiliates and Associated Physician Practices is amultiple site organization consisting of ambulatory clinics and hospital sitesin [place], [place], [place] and [place]. This disclosure is being madepursuant to the Care Everywhere program and may not contain all information available regarding this patient. Last updated 18.[facility] [employer] Allergies Active Allergy Reactions Criticality Noted Date Comments Contrast-Iodinated Agents Fo r Ct/Other Other 06/22/2019 Kidney problems Metformin Diarrhea 09/02/2022 Nsaids Other 06/22/2019 Kidney problems Medications * Be aware that medications may not be up to date on this document. Alwaysverify current medications with the patient. furosemide (Lasix) 80 MG tablet Take 1 (one) tablet by mouth once daily Active carvedilol (Coreg) 12.5 MG tablet Take 1 (one) tablet by mouth 2 times daily with morning and evening meal Active Potassium 95 MG TABS Take 1 tablet by mouth 2 times daily Active cetirizine (ZyrTEC) 10 MG tablet Take 1 (one) tablet by mouth once daily Active VITAMIN D PO Take 5,000 Units by mouth Active aspirin EC (Ecotrin) 81 MG tablet Take 1 (one) tablet by mouth once daily Active Multiple Vitamin (MULTIVITAMIN ADULT PO) Take by mouth once daily Active rosuvastatin (Crestor) 40 MG tablet Take 1 (one) tablet by mouth at bedtime 12/17/19 24 Active Mounjaro 7.5 MG/0.5ML injection Inject 7.5 (seven and one-half) mg subcutaneously every 7 days (once a week) 07/12/19 25 Active collagenase (Santyl) 250 UNIT/GM ointmentIndicatio ns:Ulcer of right foot with fat layer exposed (HCC),Diabetic polyneuropathy associated with type 2 diabetes mellitus (HCC) Apply to affected area once daily 90 g 3 08/05/19 24 024 Disconti nued(Tx Complete ) Mounjaro 5 MG/0.5ML injection Inject 5 (five) mg subcutaneously every 7 days 08/29/19 24 025 Disconti nued(Lis t Clean-Up ) gentamicin (Garamycin) 0.1 % topical ointmentIndicatio ns: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) APPLY TO THE AFFECTED AREA 3 TIMES A DAY 30 g 1 01/26/20 24 025 Disconti nued(Lis t Clean-Up ) Active Problems Problem Noted Date Diagnosed Date Cervical myelopathy 01/31/2024 Other intervertebral disc degeneration, lumbar r egion 09/22/2022 Foot drop, right 09/22/2022 Encounters Date Type Department Care Team Description 09/18/2024 3:30 PM CDT Office Visit [facility] - Podiatry [address] [phone] Tristian Yao DPM Ulcer of right foot with fat layer exposed (HCC) (Primary Dx); Diabetic polyneuropathy associated with type 2 diabetes mellitus (HCC); Onychomycosis; History of amputation (HCC) 09/04/2024 3:30 PM CDT Office Visit [facility] - Podiatry [address] [phone] Tristian Yao, GILLIAN Ulcer of right foot with fat layer exposed (HCC) (Primary Dx); Diabetic polyneuropathy associated with type 2 diabetes mellitus (HCC); Onychomycosis; History of amputation (HCC) 08/31/2024 Telephone [facility] [address] [place] [address] Brianna Walker RED HAT LINUX ENGINEER-MEENU General (See note) 08/23/2024 Orders Only [facility] [address] [place] [address] Brianna Walker RED HAT LINUX ENGINEER-GREEN [employer]IZE PACKER S/P cervical spinal fusion ; Cervical myelopathy (HCC) 08/14/2024 3:30 PM CDT Office Visit [facility] - Podiatry [address] [phone] Tristian Yao, DPM Ulcer of right foot with fat layer exposed (HCC) (Primary Dx); Diabetic polyneuropathy associated with type 2 diabetes mellitus (HCC); Onychomycosis; Drop foot gait; History of amputation (HCC) 08/03/2024 Telephone [facility] [address] [place] [phone] Brianna Walker RED HAT LINUX ENGINEER-GREEN [employer]IZE PACKER Follow-up (see note. ) 07/20/2024 8:30 AM CDT Office Visit [facility] [address] [place] [phone] Brianna Walker APRN-GREEN PRIZE PACKER S/P cervical spinal fusion (Primary Dx); Cervical myelopathy 07/20/2024 7:45 AM CDT - 07/20/2024 11:59 PM CDT Hospital Encounter [facility] [address] [place], [place] [phone] Vasquez Cope MD Discharge Disposition: Home or Self Care 07/13/2024 Telephone [facility] [address] [place] [phone] Brianna Walker RED HAT LINUX ENGINEER[employer] P[employer]ER Imaging (see note) 07/12/2024 3:30 PM CDT Office Visit [facility] - Podiatry [address] [phone] Tristian Yao, DPM Ulcer of right foot with fat layer exposed (Primary Dx); Diabetic polyneuropathy associated with type 2 diabetes mellitus; Onychomycosis; Drop foot gait; History of amputation 07/10/2024 3:00 PM CDT Office Visit [facility] [address] [facility] [address], [address] [place] [address] Johnathon Perez, Paroxysmal A-fib (Primary Dx); Primary hypertension; Mixed hyperlipidemia; Localized swelling of both lower legs from Last 3 Months Immunizations Immunization Administration Dates Next Due Covid Pfizer primary [...] 01/24/2024 Smokeless Tobacco: Never Tobacco Cessation:Counseling Given: No Comments:Stopped 1 week ago/ pre-surgery Alcohol Use [...] Date Recorded Patient Health Questionnaire-2 Score 0 09/18/2024 [facility] - Occupational Stress [...] place to sleep or slept in a intermediate (including now)? No 01/31/2024 Sex and Gender Information Value Date Recorded Sex Assigned at Not on file Legal Sex Male 10:07 AM CDT Gender Identity Not on file Sexual Orientation Not on file Last Filed Vital Signs Vital Sign Reading Time Taken Comments Blood Pressure 113/70 09/18/2024 3:08 PM CDT Pulse 59 09/18/2024 3:08 PM CDT Temperature 36.1 C (97 F) 09/18/2024 3:08 PM CDT Respiratory Rate 18 09/18/2024 3:08 PM CDT Oxygen Saturation 93% 09/18/2024 3:08 PM CDT Inhaled Oxygen Concentration 21% 01/31/2024 7 :00 PM CDT Weight 112 kg (247 lb) 09/18/2024 3:08 PM CDT Height 193 cm (6' 4) 09/18/2024 3:08 PM CDT Body Mass Index 30.07 09/18/2024 3:08 PM CDT Plan of Treatment Upcoming Encounters Date Type Department Care Team (Late st Contact Info) Description 10/11/2024 3:30 PM CDT Office Visit [facility] - Podiatry 2 [facility] [place] [phone] Tristian Yao, DPM 2 [facility] [address] [place] [address] 01/22/2025 3:00 PM CDT Office Visit [facility] [address] [place] [phone] Vasquez Cope MD [address] [place], [place] [address] 07/09/2025 3:00 PM CDT Office Visit [facility] 2 [facility], [address] [place], [place] [phone] Johnathon Perez T, DO 2 [facility] [address] [place] [phone] Health Maintenance Due Date Last Done Comments [...] series) 2012 AAA SCREENING 2017 COVID-19 VACCINE ( season) 2023 04/25/2021, 05/02/2020, 04/10/2020 INFLUENZA VACCINE (Season Ended) 2024 05/25/2014, 12/25/2012 SCREENING FOR DIABETES 01/31/2027 , 02/01/2024, 01/13/2024, [...] this topic Medical Devices Implanted Type Area Steward/Stewardess Chief Cargo Vessel Device Identifier Shelf Expiration Date Model / Serial / Lot Graft Bone I Fctr 2.5cc Algrf Ptty Syr - [id number] Implanted:Qty: 1 on 02/01/2024 by Vasquez Cope MD at [facility] N/A: Spine Cervical [employer] 04/24/2026 700-025 / [id number] / [id number] 7mm Interbody Plate Implanted:Qty: 3 on 02/01/2024 by Vasquez Cope MD at [facility] N/A: Spine Cervical 170-07 / / Description:7mm Interbody Pl ate 7mm X 15 X 17.5, 6 Degree Cage Implanted:Qty: 3 on 02/01/2024 by Vasquez Cope MD at [facility] N/A: Spine Cervical [id number] / / Description:cage 4.0 X 18mm Self Drilling Variable Screw Implanted:Qty: 6 on 02/01/2024 by Vasquez Cope MD at [facility] N/A: Spine Cervical [id number] / / Procedures Procedure Name Priority Date/Time Associated Diagnosis Comments XR CERVICAL SPINE 2 OR 3VW Routine 07/20/2024 7:58 AM CDT S/P cervical spinal fusion EKG 12-LEAD Routine 07/10/2024 Paroxysmal A-fib GLUCOSE - POINT OF CARE Routine 02/01/2024 9:17 AM CDT from Last 3 Months or Most Recently Relevant to Health Maintenance Results * XR Cervical Spine 2 or 3Vw (07/20/2024 7:58 AM CDT) Anatomical Region Laterality Modality Spine Computed Radiogr aphy 07/20/2024 8:01 AM CDT Impressions 07/20/2024 8:01 AM CDT IMPRESSION: Stable arthrodesis. > Interpreting Provider: Aman Booth MD on 07/20/2024 8:01 AM Narrative 07/20/2024 8:01 AM CDT PROCEDURE: XR CERVICAL SPINE 2 OR 3VW 07/20/2024 8:01 AM HISTORY: Z98.1: S/P cervical spinal fusion. FINDINGS AND IMPRESSION: COMPARISON: 04/23/2024. No acute fracture, dislocation, destructive process Anterior interbody fusion C3-C4 C4-C5 and C5-C6. Intervertebral disc spacers are also noted. Surgical hardware in satisfactory position Anatomic alignment. No evidence of hardware failure or loosening. C1-C2 ring is intact. Procedure Note Aman Booth MD - 07/20/2024 PROCEDURE: XR CERVICAL SPINE 2 OR 3VW 07/20/2024 8:01 AM HISTORY: Z98.1: S/P cervical spinal fusion. FINDINGS AND IMPRESSION: COMPARISON: 04/23/2024. No acute fracture, dislocation, destructive process Anterior interbody fusion C3-C4 C4-C5 and C5-C6. Intervertebral disc spacers are also noted. Surgical hardware in satisfactory position Anatomic alignment. No evidence of hardware failure or loosening. C1-C2 ring is intact. IMPRESSION: Stable arthrodesis. > Interpreting Provider: Aman Booth MD on 07/20/2024 8:01 AM Brianna Walker RED HAT LINUX ENGINEER-GREEN [employer]IZE PACKER DIAGNOSTIC IMAGING ORDER SANAZ Final Result * EKG 12-LEAD (07/10/2024) Johnathon Perez DO ECG ORDERABLES Final Result * GLUCOSE - POINT OF CARE (02/01/2024 9:17 AM CDT) Glucose WB/POC 106 70 - 125 mg/dL 02/01/2024 9:18 AM CDT [facility] Specimen Type Cap Fingerstick 2023 9:18 AM CDT [facility] Blood BLOOD SPECIMEN / Unknown 02/01/2024 9:17 AM CDT 02/01/2024 9:18 AM CDT Vasquez Cope MD LAB - POINT OF CARE O RDERABLES Final Result Performing Organization Address [facility] de Phone Number [facility] [address] from Last 3 Months or Most Recently Relevant to Health Maintenance Additional Health Concerns Infection Onset Date Last Indicated MRSA Hx Comment:202101/18/2024 01/18/2024 Insurance [facility] MANAGED MEDICARE ADV Advance Directives * Full Code (Latest Code Status on File) Date Activated Date Inactivated Comments 02/01/2024 7:50 AM 02/02/2024 3:58 PM Care Teams Research Asst Relationship Specialty Start Date End Date Moe Delacruz MD [address] [place] [address] PCP - General Family Medicine 01/17/24 Johnathon Perez DO 2 [facility] [address] [place] [address] Assessment Analyst Cardiac Electrophysiology 01/17/24
[2024-09-26 08:09] LABS: Mean Platelet Volume 9.9 fl (7.4-10.4); Platelet Count Result 160 k/mm3 (150-375)
[2024-09-26 08:26] LABS: INR 1.1
--- NOTE | 2024-09-26 09:06 | SUR.PREOP ---
SPOKE W/ PT RE: CONTRAST MEDIA ALLERGY. 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 PT STATES HAS H/X OF RENAL CA AND CRI AND HAS BEEN ADVISED IF POSSIBLE AGAINST IVP MEDIA BUT IS UNDERSTANDING OF RECEIVING SPINAL CONTRAST TODAY AND CONSENTS TO THIS; [facility] RADIOLOGY HERE; STATES SHE HAS SPOKEN TO ORDERING PROVIDER GAURAV HOWARD VIA PERSONAL CELL PHONE AND WAS INFORMED PT RENAL FUNCTION IS WNL AND HAS LEFT CELL PHONE # FOR ANY FURTHER QUESTIONS/CONCERNS.
[2024-09-26 10:55] LABS: Glucose Point of Care 99 mg/dl (65-105)
== END 2024-09-26 12:33 | disposition home or self-care (01) ==
PROVIDERS: PCP Family Medicine; Visit Provider Radiology Diagnostic Radiology
DX: M41.85 Other forms of scoliosis, thoracolumbar region (principal); M41.82 Other forms of scoliosis, cervical region; M47.812 Spondylosis without myelopathy or radiculopathy, cervical region; M47.814 Spondylosis without myelopathy or radiculopathy, thoracic region; Z98.1 Arthrodesis status
CPT/HCPCS: 36415; 62302; 72126; 82948; 85049; 85610; Q9967

== ENCOUNTER 2025-03-07 07:49 | Outpatient (CLI) | payer MEDICARE, SELFPAY ==
--- NOTE | ~2025-03-07 | MR_ITS ---
EXAM/PROCEDURE: MR lumbar spine wo con HISTORY: Lumbar spondylosis COMPARISON: None available. TECHNIQUE: Standard technique for lumbar spine MRI performed. No contrast used. FINDINGS: Advanced degenerative changes involving disc spaces and posterior elements throughout the lumbar spine. Modic type I endplate changes are present at several levels including L5-S1, L2-3, and L1-2. Small to moderate size Schmorl's nodes are present at essentially all of these levels as well. Other than mild edematous appearing endplate changes, no acute or aggressive bony or soft tissue process seen. The conus tapers normally at L1. Level specific findings as follows: T12-L1: Moderately sized Schmorl's node along the posterior inferior endplate of T12. Moderate amount of subjacent edematous appearing bone marrow changes. Slight hyperintense T2-weighted signal in the disc space but no fluid collection or thickening of the disc. Moderately severe posterior spondylosis is present. No discrete disc protrusion or spinal canal stenosis. Mild to moderately severe bilateral neural foraminal narrowing. L1-2: A 1.8 cm benign hemangioma in the L1 vertebral body. Moderate size Schmorl's node also developing at this level involving both the superior and inferior endplates posteriorly. The intervertebral disc is also hyperintense in T2-weighted signal but no discrete fluid accumulation or gross thickening. Moderate degenerative disc and facet changes but no spinal canal stenosis or discrete disc protrusion. Moderately severe left and mild to moderate right- sided neural foraminal narrowing. L2-3: Moderately severe degenerative disc changes, as well as hypertrophy of the facets and thickening of ligamentum flavum results in mild stenosis in the lateral recesses left worse than right. No spinal canal stenosis or discrete disc protrusion. Mild to moderate bilateral neural foraminal narrowing. L3-4: Mild stenosis in both lateral recesses. Borderline spinal canal stenosis associated with moderate degenerative disc bulging/posterior spondylosis along with thickening of ligamentum flavum and facet hypertrophy. No discrete disc protrusion. Moderate right and mild to moderate left-sided neural foraminal narrowing. L4-5: No spinal canal stenosis or discrete disc protrusion. Borderline stenosis in the lateral recesses. Mild to moderate left and moderate to severe right- sided neural foraminal narrowing. L5-S1: No spinal canal stenosis or discrete disc protrusion. Mild to moderate bilateral neural foraminal narrowing. IMPRESSION: 1. Multilevel degenerative changes involving disc spaces and posterior elements with varying degrees of neural foraminal narrowing, as well as stenosis in the lateral recesses as detailed above. 2. Numerous Schmorl's nodes with Modic type I endplate changes; hyperintense T2- weighted signal is also seen in the T12-L1 and wall L1-L2 discs but no fluid collection or engorgement. If discitis is a clinical concern, correlate with C- reactive protein, white count and consider follow-up lumbar spine with contrast enhancement. Reviewed, dictated and finalized at location [facility] [employer] IMPRESSION: 1. Multilevel degenerative changes involving disc spaces and posterior elements with varying degrees of neural foraminal narrowing, as well as stenosis in the lateral recesses as detailed above. 2. Numerous Schmorl's nodes with Modic type I endplate changes; hyperintense T2 -weighted signal is also seen in the T12-L1 and wall L1-L2 discs but no fluid c ollection or engorgement. If discitis is a clinical concern, correlate with C-r eactive protein, white count and consider follow-up lumbar spine with contrast enhancement.
--- NOTE | ~2025-03-07 | XR_ITS ---
XR lumbar spine min 4V Indication: Lumbar spondylosis/LBP Comparison: None Findings: Dextroconvex scoliosis. Moderate loss of vertebral height throughout. Grade 1 retrolisthesis of L4. On L4 and L4 on L5, no acute fracture. No subluxation flexion and extension Severe loss of disc height throughout. Soft tissues unremarkable Impression: No acute abnormality. 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
--- OUTSIDE RECORDS SUMMARY | 2025-03-07 07:56 | XMS_ITS | Clinical Summary ---
Author Organization [facility] Natural [facility]ist Address [address] [place] [address] Care Team Providers Care Two Needle Machine Operator Name Role Phone Moe Delacruz MD Primary Care Provider [phone] Johnathon Perez DO Unavailable [phone] Source Comments [facility],non-owned Affiliates and Associated Physician Practices is amultiple site organization consisting of ambulatory clinics and hospital sitesin [place], [place], [place] and [place]. This disclosure is being madepursuant to the Care Everywhere program and may not contain all information available regarding this patient. Last updated 18.[facility] Allergies Active Allergy Reactions Criticality Noted Date [...] days (once a week) 07/12/19 25 Active magnesium 30 MG tablet Take 1 (one) tablet by mouth once daily Active collagenase (Santyl) 250 UNIT/GM ointmentIndicatio ns:Ulcer of right foot with fat layer exposed (HCC),Diabetic polyneuropathy associated with type 2 diabetes mellitus (HCC) Apply to affected area once daily 90 g 3 08/05/19 24 024 Disconti nued(Tx Complete ) Active Problems Problem Noted Date Diagnosed Date Cervical myelopathy 01/31/2024 Other intervertebral disc degeneration, lumbar r egion 09/22/2022 Foot drop, right 09/22/2022 Encounters Date Type Department Care Team Description 02/12/2025 3:30 PM CDT Office Visit [facility] - Podiatry [address] [place] [address], [address] [phone] Tristian Yao, DPM Ulcer of right foot with fat layer exposed (HCC) (Primary Dx); Diabetic polyneuropathy associated with type 2 diabetes mellitus (HCC); History of amputation (HCC); Onychomycosis 01/22/2025 3:00 PM CDT Office Visit [facility] [address] [place] [phone] Vasquez Cope MD Lumbar spondylolysis (Primary Dx); Lumbar radiculopathy; S/P cervical spinal fusion; Cervical myelopathy (HCC); Lumbar herniated disc; Spinal stenosis of lumbar region with neurogenic claudication 01/22/2025 2:23 PM CDT - 01/22/2025 11:59 PM CDT Hospital Encounter [facility] [address] [place] [address] Vasquez Cope MD Discharge Disposition: Home or Self Care 01/18/2025 Orders Only [facility] [address] [place] [address] Vasquez Cope MD S/P cervical spinal fusion 01/14/2025 3:30 PM CDT Office Visit [facility] - Podiatry [address] [facility], [facility] [address] [place] [phone] Tristian Yao DPM Diabetic polyneuropathy associated with type 2 diabetes mellitus (HCC) (Primary Dx); Ulcer of right foot with fat layer exposed (HCC); Drop foot gait; Onychomycosis; History of amputation (HCC) 12/13/2024 3:30 PM CDT Office Visit [facility] [address] [facility], [facility] [address] [place] [phone] Tristian Yao, DPKaylee Ulcer of right foot with fat layer exposed (HCC) (Primary Dx); Diabetic polyneuropathy associated with type 2 diabetes mellitus (HCC); Onychomycosis; History of amputation (HCC); Callus of foot from Last 3 Months Immunizations Immunization Administration Dates Next Due CovAipai primary monoval ent 12+ yr 0.3mL Purple cap 05/02/2020,04/10/2020 PNEUMOCOCCAL PCV20 CONJ VAC IM 02/02/2024 TDAP (7yrs+) 09/02/2022 Family History Medical History Relation Name Comments Diabetes - Type 2 Father CVA Mother Relation Name Status Comments Father Mother Social History Tobacco Use Types Packs/Day Years Used Date Smoking Tobacco: Former Cigarettes 1 Q uit: 01/24/2024 Smokeless Tobacco: Never Tobacco [...] Date Recorded Patient Health Questionnaire-2 Score 0 10/11/[address] [facility] [place] of Occupat ional Health - Occupational Stress [...] place to sleep or slept in a skilled nursing (including now)? No 01/31/2024 Sex and Gender Information Value Date Recorded Sex Assigned at Not on file Legal Sex Male 10:07 AM CDT Gender Identity Not on file Sexual Orientation Not on file Last Filed Vital Signs Vital Sign Reading Time Taken Comments Blood Pressure 119/69 02/12/2025 3:17 PM CDT Pulse 58 02/12/2025 3:17 PM CDT Temperature 36.1 C (97 F) 02/12/2025 3:17 PM CDT Respiratory Rate 16 02/12/2025 3:17 PM CDT Oxygen Saturation 95% 02/12/2025 3:17 PM CDT Inhaled Oxygen Concentration 21% 01/31/2024 7 :00 PM CDT Weight 108.9 kg (240 lb) 01/22/2025 2:55 PM CDT Height 193 cm (6' 4) 02/12/2025 3:17 PM CDT Body Mass Index 29.21 01/22/2025 2:55 PM CDT Plan of Treatment Upcoming Encounters Date Type Department Care Team (Late st Contact Info) Description 03/28/2025 3:00 PM 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 Office Visit [facility] - Podiatry [address] [facility], [place] [address] [place] [phone] Tristian Yao, DPM [address] [facility] [address] [place] [address] 07/09/2025 3:00 PM CDT Office Visit [facility] [address] [facility], [address] [place] [address] Johnathon Perez, DO [address] [facility] [address] [place] [phone] Health Maintenance Due Date Last Done Comments [...] years 1-dose series) 2012 AAA SCREENING 2017 MEDICARE AWV CALENDAR YEAR 2024 COVID-19 VACCINE ( season) 2024 04/25/2021, 05/02/2020, 04/10/2020 INFLUENZA VACCINE (#1) 2024 05/25/2014, 2012 SCREENING FOR DIABETES 01/31/2027 , [...] this topic Medical Devices Implanted Type Area Supervisor [employer] Device Identifier Shelf Expiration Date Model / Serial / Lot Graft Bone I Fctr 2.5cc Algrf Ptty Syr - [id number] Implanted:Qty: 1 on 02/01/2024 by Vasquez Cope MD at [facility] N/A: Spine Cervical [employer] 04/24/2026 700-025 / [id number] / [id number] 7mm Interbody Plate Implanted:Qty: 3 on 02/01/2024 by Vasquez Cope MD at [facility] N/A: Spine Cervical [id number] / / Description:7mm Interbody Pl ate 7mm X 15 X 17.5, 6 Degree Cage Implanted:Qty: 3 on 02/01/2024 by Vasquez Cope MD at [facility] N/A: Spine Cervical [id number] / / Description:cage 4.0 X 18mm Self Drilling Variable Screw Implanted:Qty: 6 on 02/01/2024 by Vasquez Cope MD at [facility] N/A: Spine Cervical [id number] / / Procedures Procedure Name Priority Date/Time Associated Diagnosis Comments XR CERVICAL SPINE 2 OR 3VW Routine 01/22/2025 2:27 PM CDT S/P cervical spinal fusion GLUCOSE - POINT OF CARE Routine 02/01/2024 9:17 AM CDT from Last 3 Months or Most Recently Relevant to Health Maintenance Results * XR CERVICAL SPINE 2 OR 3 VW 09026 (01/22/2025 2:27 PM CDT) Anatomical Region Laterality Modality Spine Computed Radiogr aphy 01/22/2025 7:19 PM CDT Impressions 01/22/2025 7:19 PM CDT IMPRESSION: Postoperative changes and degenerative changes > Interpreting Provider: Freddie Avalos MD on 01/22/2025 7:19 PM Narrative 01/22/2025 7:19 PM CDT PROCEDURE: XR CERVICAL SPINE 2 OR 3VW DATE/TIME OF EXAM: 01/22/2025 2:27 PM CLINICAL INFORMATION: None relevant/not provided if blank. Indication: Z98.1: S/P cervical spinal fusion Additional History: Cervical spine pain COMPARISON: None FINDINGS: 3 views show anterior fusion of C3-4, C4-5, and C5-6 with anterior screws and intervertebral disc space devices. Endplate degenerative changes are present. There is intervertebral spacer at C6-7. No fracture or hardware complication is present. Procedure Note Freddie Avalos MD - 01/22/2025 PROCEDURE: XR CERVICAL SPINE 2 OR 3VW DATE/TIME OF EXAM: 01/22/2025 2:27 PM CLINICAL INFORMATION: None relevant/not provided if blank. Indication: Z98.1: S/P cervical spinal fusion Additional History: Cervical spine pain COMPARISON: None FINDINGS: 3 views show anterior fusion of C3-4, C4-5, and C5-6 with anteriorscrews and intervertebral disc space devices. Endplate degenerative changes are present. There is intervertebral spacer at C6-7. No fracture or hardware complication is present. IMPRESSION: Postoperative changes and degenerative changes > Interpreting Provider: Freddie Avalos MD on 01/22/2025 7:19 PM Vasquez Cpoe MD DIAGNOSTIC IMAGING OR DERABLES Final Result * GLUCOSE - POINT OF CARE (02/01/2024 9:17 AM CDT) Glucose WB/POC 106 70 - 125 mg/dL 02/01/2024 9:18 AM CDT [facility] Specimen Type Cap Fingerstick 2023 9:18 AM CDT [facility] Blood BLOOD SPECIMEN / Unknown 02/01/2024 9:17 AM CDT 02/01/2024 9:18 AM CDT Vasquez Cope MD LAB - POINT OF CARE O RDERABLES Final Result Performing Organization Address [facility] de Phone Number [facility] [address] from Last 3 Months or Most Recently Relevant to Health Maintenance Additional Health Concerns Infection Onset Date Last Indicated MRSA Hx Comment:202101/18/2024 01/18/2024 Insurance [facility] MANAGED MEDICARE ADV Advance Directives * Full Code (Latest Code Status on File) Date Activated Date Inactivated Comments 02/01/2024 7:50 AM 02/02/2024 3:58 PM Care Teams Two Needle Machine Operator Relationship Specialty Start Date End Date Moe Delacruz MD [address] [place] [phone] PCP - General Family Medicine 01/17/24 Johnathon Perez DO [address] [facility] [address] [place] [address] Care Professional Cardiac Electrophysiology 01/17/24
== END 2025-03-07 07:50 | disposition home or self-care (01) ==
PROVIDERS: PCP Family Medicine
DX: M41.86 Other forms of scoliosis, lumbar region (principal); M43.16 Spondylolisthesis, lumbar region; R29.890 Loss of height
CPT/HCPCS: 72110; 72148